=== PATIENT | female | born 1955 | race American Indian/Alaskan Native ===

== ENCOUNTER 2016-07-16 14:38 | Outpatient (CLI) | payer OTHER ==
--- NOTE | 2016-07-16 15:49 | Mammography Report ---
The BILATERAL MAMMOGRAM: FINDINGS: The breasts are almost entirely fat (<25% glandular). No suspicious mass, distortion, suspicious calcification, or skin change is seen. There is small nodularity in the upper right breast. There is a biopsy marker in the superolateral left breast. CAD was utilized. IMPRESSION: There is no suspicion of malignancy however the patient's prior studies are being requested for comparison. RECOMMENDATION: Will be issued following comparison. BI-RADS CATEGORY: 0 = Needs additional imaging evaluation ACR BI-RADS MAMMOGRAPHIC CODES: 0 = Needs additional imaging evaluation; 1 = Negative; 2 = Benign; 3 = Probably benign; 4 = Suspicious; 5 = Malignant; 6 = Known biopsy-proven malignancy COMMENT: 1. Dense breast tissue, i.e., adenosis, fibrocystic changes, etc., may obscure an underlying neoplasm. 2. Approximately 10% of cancers are not detected with mammography. 3. A negative mammography report should not delay biopsy if a clinically suspicious mass is present.
== END 2016-07-16 14:39 | disposition home or self-care (01) ==
LOC: MAMMO 14:38
PROVIDERS: ATTEND Internal Medicine
DX: Z12.31 Encounter for screening mammogram for malignant neoplasm of breast (principal)
CPT/HCPCS: 77067; G0202

== ENCOUNTER 2016-08-10 12:33 | Outpatient (CLI) | payer OTHER ==
--- NOTE | 2016-08-10 13:41 | XRay Report ---
RIGHT HIP, 2 views: History: Right hip pain. The bony architecture is intact without evidence of fracture or dislocation. No significant soft tissue abnormality is seen. IMPRESSION: Normal right hip.
--- NOTE | 2016-08-10 13:43 | XRay Report ---
BILATERAL KNEES, 3 VIEWS History: Bilateral knee pain. Findings: Moderate osteoarthritic changes are identified in the medial compartments and patellofemoral spaces of both knees. Mild osteoarthritic changes in the lateral compartments. Small bilateral joint effusions are identified. No evidence for fracture, bone lesion or large osteochondral defect. Impression: Osteoarthritic changes. Small joint effusions.
== END 2016-08-10 12:34 | disposition home or self-care (01) ==
LOC: XRAY 12:33
PROVIDERS: ATTEND Internal Medicine
DX: M25.462 Effusion, left knee (principal); M25.461 Effusion, right knee

== ENCOUNTER 2017-06-08 12:28 | Outpatient (CLI) | payer OTHER ==
--- NOTE | 2017-06-08 13:31 | XRay Report ---
Bilateral knee: History: Knee pain. Findings: Marked narrowing of the medial and patellofemoral compartment right and left knee joint. Sclerotic articular surfaces with peripheral osteophytes suggestive of severe degenerative changes. Moderate degenerative changes of the lateral compartment. No definite evidence of joint effusion. Impression: Degenerative changes right and left knee as detailed above.
== END 2017-06-08 12:29 | disposition home or self-care (01) ==
LOC: SPVIMAG 12:28
PROVIDERS: ATTEND Orthopaedic Surgery
DX: M17.0 Bilateral primary osteoarthritis of knee (principal)

== ENCOUNTER 2017-07-18 12:48 | Outpatient (CLI) | payer OTHER ==
--- NOTE | 2017-07-18 14:27 | Mammography Report ---
BILATERAL MAMMOGRAM: FINDINGS: The breasts are almost entirely fat (<25% glandular). No mass, distortion, suspicious calcification, or skin change is seen. There is a biopsy clip in the lateral left breast. No significant change identified when compared to prior exam in May 2013. CAD was utilized. IMPRESSION: Negative mammogram. There is no mammographic evidence of malignancy. RECOMMENDATION: Follow-up per ACS guidelines. BI-RADS CATEGORY: 1 = Negative ACR BI-RADS MAMMOGRAPHIC CODES: 0 = Needs additional imaging evaluation; 1 = Negative; 2 = Benign; 3 = Probably benign; 4 = Suspicious; 5 = Malignant; 6 = Known biopsy-proven malignancy COMMENT: 1. Dense breast tissue, i.e., adenosis, fibrocystic changes, etc., may obscure an underlying neoplasm. 2. Approximately 10% of cancers are not detected with mammography. 3. A negative mammography report should not delay biopsy if a clinically suspicious mass is present. COMMENT: Patient follow-up letters are generated in [employer].
== END 2017-07-18 12:49 | disposition home or self-care (01) ==
LOC: SPVWC 12:48
PROVIDERS: ATTEND Internal Medicine
DX: Z12.31 Encounter for screening mammogram for malignant neoplasm of breast (principal)
CPT/HCPCS: 77067

== ENCOUNTER 2018-09-26 13:40 | Outpatient (CLI) | payer OTHER ==
--- NOTE | 2018-09-26 14:39 | XRay Report ---
XRAY BILATERAL HIPS AND AP PELVIS THREE VIEWS: 09/26/18 00:00:00 CLINICAL: Bilateral hip pain FINDINGS: Right: No fracture or dislocation. Mild hip osteoarthritis Normal soft tissues. Left: No fracture or dislocation. Mild hip osteoarthritis. Normal soft tissues. The pelvic bones are intact.Normal SI joints. IMPRESSION: Mild Osteoarthritis hips.
--- NOTE | 2018-09-26 16:12 | Mammography Report ---
BILATERAL DIGITAL SCREENING MAMMOGRAM with CAD: 09/26/18 13:40:00 CLINICAL: Routine screening. COMPARISON:07/18/17 FINDINGS: There are scattered areas of fibroglandular density.A left outer biopsy clip. No mass, architectural distortion or suspicious calcifications. IMPRESSION: No mammographic evidence of malignancy. BI-RADS CATEGORY: 2 -- Benign RECOMMENDATION: Routine mammographic screening in one year. COMMENT: Patient follow-up letters are generated by our [employer] application.
== END 2018-09-26 13:41 | disposition home or self-care (01) ==
LOC: SPVWC 13:40
PROVIDERS: ATTEND Internal Medicine
DX: Z12.31 Encounter for screening mammogram for malignant neoplasm of breast (principal); M16.0 Bilateral primary osteoarthritis of hip
CPT/HCPCS: 73521; 77067

== ENCOUNTER 2021-03-19 10:00 | Outpatient (CLI) | payer OTHER ==
--- NOTE | 2021-03-19 12:37 | Mammography Report ---
DIGITAL SCREENING MAMMOGRAM WITH CAD, 03/19/2021 CLINICAL INFORMATION / INDICATION: Routine screening mammography. SCREENING MAMMOGRAM TECHNIQUE: Digital bilateral 2D mammography was obtained in the craniocaudal and mediolateral obliqu e projections. This examination was interpreted with the benefit of Computer-Aided Detection analysis . COMPARISON: 09/26/2018. FINDINGS: Breast Density: There are scattered areas of fibroglandular density. No dominant mass, suspicious calcifications, or architectural distortion in either breast. Postbiopsy change left breast. IMPRESSION: No mammographic evidence of malignancy. Follow up recommendation: Routine yearly BI-RADS Category 2: Benign. A "normal" or negative report should not discourage follow up or biopsy of a clinically significant f inding. A written summary of these findings will be mailed to the patient. The patient will be entered into a mammography reporting system which will generate a reminder letter for the patient's next appointmen t at the appropriate interval. The [employer] recommends yearly mammograms starting at age 40 and continuing as l carolann as a woman is in good health. Breast MRI is recommended for women with an approximate 20-25% or greater lifetime risk of breast cancer, including women with a strong family history of breast or ova aroldo cancer or who have been treated for Hodgkin's disease. Signer Name: Jeff Cardozo MD Signed: 03/19/2021 12:33 PM Workstation Name: [id number]
== END 2021-03-19 10:01 | disposition home or self-care (01) ==
LOC: MAMMO 10:00
PROVIDERS: ATTEND Nurse Practitioner Acute Care
DX: Z12.31 Encounter for screening mammogram for malignant neoplasm of breast (principal)
CPT/HCPCS: 77067

== ENCOUNTER 2022-03-26 12:46 | Outpatient (CLI) | payer MEDICARE, OTHER ==
--- NOTE | 2022-03-30 10:13 | Mammography Report ---
DIGITAL SCREENING MAMMOGRAM WITH CAD, 03/26/2022 CLINICAL INFORMATION / INDICATION: Routine screening mammography. SCREENING MAMMOGRAM Z12.31 TECHNIQUE: Digital bilateral 2D mammography was obtained in the craniocaudal and mediolateral obliqu e projections. This examination was interpreted with the benefit of Computer-Aided Detection analysis . COMPARISON: 09/26/2018. FINDINGS: Breast Density: There are scattered areas of fibroglandular density. No dominant mass, suspicious calcifications, or architectural distortion in the right breast. Postsur gical scar, left breast. Biopsy clip, left breast. There is a small round 5 mm mass projecting in the left breast at approximately 3-4:00, middle depth. Recommend further evaluation with spot compression imaging and possibly left breast ultrasound. IMPRESSION: 5 mm left breast mass at 3-4:00, middle depth. Recommend initial evaluation with spot com pression imaging followed by possible left breast ultrasound. Follow up recommendation: Special View: Spot Compression BI-RADS Category 0: INCOMPLETE. Needs additional imaging evaluation and/or prior mammograms for bright zhang. A "normal" or negative report should not discourage follow up or biopsy of a clinically significant f inding. A written summary of these findings will be mailed to the patient. The patient will be entered into a mammography reporting system which will generate a reminder letter for the patient's next appointmen t at the appropriate interval. The [employer] recommends yearly mammograms starting at age 40 and continuing as l carolann as a woman is in good health. Breast MRI is recommended for women with an approximate 20-25% or greater lifetime risk of breast cancer, including women with a strong family history of breast or ova aroldo cancer or who have been treated for Hodgkin's disease. Signer Name: Rody Banda MD Signed: 03/30/2022 10:09 AM Workstation Name: [id number]
== END 2022-03-26 12:47 | disposition home or self-care (01) ==
LOC: MAMMO 12:46
PROVIDERS: ATTEND Nurse Practitioner
DX: Z12.31 Encounter for screening mammogram for malignant neoplasm of breast (principal)
CPT/HCPCS: 77067